=== PATIENT | female | born 1985 | race Caucasian/White ===

== ENCOUNTER 2016-05-09 17:30 | Emergency (ER) | payer SELFPAY ==
[~2016-05-09] VITALS: Ht 167.6 cm; Wt 103.0 kg
[~2016-05-09 17:30] MED LIST: METH-58 PO; METH250T PO; PREN-47 PO
[2016-05-09 17:32] VITALS: Ht 167.6 cm; Wt 103.0 kg
[2016-05-10] MEDS ORDERED: CETI-240 PO (11:52)
[2016-05-10] MEDS ORDERED: POLYT BOTH EYES (11:52)
[2016-05-10] MEDS ORDERED: CEPH-443 PO (11:53)
[2016-05-10] MEDS ORDERED: BENA20TA65 PO (12:09)
== END 2016-05-09 20:18 | disposition left against medical advice (07) ==
LOC: FTE 17:30
DX: Z53.21 Procedure and treatment not carried out due to patient leaving prior to being seen by health care provider (principal)

== ENCOUNTER 2016-05-10 09:54 | Emergency (ER) | payer OTHER ==
[2016-05-09 17:32] VITALS: Wt 103.5 kg
[~2016-05-10] VITALS: Wt 103.5 kg
[2016-05-10 11:14] LABS: URINE BLOOD (Dip) POC 3+ (NEGATIVE)
[2016-05-10] MEDS ORDERED: CEPHALEXIN 500 MG CAP PO ONE (11:30)
[2016-05-10] MEDS ORDERED: POLYT BOTH EYES (11:52)
[2016-05-10] MEDS ORDERED: CETI-240 PO (11:52)
[2016-05-10] MEDS ORDERED: CEPH-443 PO (11:53)
--- NOTE | 2016-05-10 11:56 | ERD ---
ER Documentation Chief Complaint Date/Time DATE: 05/10/16 TIME: 11:55 Chief Complaint eye redness, blurry vision HPI This 30-year-old female presents with bilateral eye redness with some discharge in the morning for last week. She has some slight swelling of her upper and lower lids. She denies any visual field deficits or abnormal eye movements. She denies fevers, shortness breath, chest pain. She may have had a URI last week. She has no additional complaints of burning with urination for last 3 days. She has a history of recurrent UTIs. She was last treated approximately 6 months ago. She denies any fevers or flank pain. ROS All systems reviewed and are negative except as per history of present illness. Medications Home Meds Active Scripts Benazepril Hcl* (Lotensin*) 20 Mg Tablet, 20 MG PO DAILY, #30 TAB Prov:TIA VILLALTA MD 05/10/16 Cephalexin* (Keflex*) 500 Mg Capsule, 500 MG PO QID for 7 Days, CAP Prov:TIA VILLALTA MD 05/10/16 Cetirizine Hcl* (Cetirizine Hcl*) 10 Mg Tablet, 10 MG PO DAILY, #15 TAB Prov:TIA VILLALTA MD 05/10/16 Polymyxin/Trimethoprim* (Polytrim*) 10 Ml Drops, 1 DROP BOTH EYES QID for 7 Days , EACH Prov:TIA VILLALTA MD 05/10/16 Reported Medications Methyldopa* (Methyldopa*) 500 Mg Tablet, 500 MG PO TID Y for ELEVATED BLOOD PRESSURE, TAB 01/13/16 Hll29-Vval-Hfqiy Acid (Prenata Chewable) 1 Each Tab.chew, 1 TAB PO DAILY, TAB.CHEW 08/09/15 Methyldopa* (Methyldopa*) 250 Mg Tablet, 250 MG PO TID Y for ELEVATED BLOOD PRESSURE, TAB 08/09/15 Allergies Allergies: Coded Allergies: No Known Drug Allergy (Unverified Allergy, Intermediate, NONE, 08/09/15) PMhx/Soc History of Surgery: No Anesthesia Reaction: No Hx Neurological Disorder: No Hx Respiratory Disorders: No Hx Cardiac Disorders: No Hx Psychiatric Problems: No Hx Miscellaneous Medical Probl: Yes (PREECLAMPSIA FOR ALL OF HER PREVIOUS PREGNANCIES (4TH PREG)) Hx Alcohol Use: No Hx Substance Use: No Hx Tobacco Use: No Physical Exam Vitals Vital Signs Date Time Temp Pulse Resp B/P Pulse Ox O2 Delivery O2 Flow Rate FiO2 05/10/16 10:03 97.0 74 20 188/98 98 Physical Exam Const: [] Alert, [id number] per Head: Atraumatic Eyes: Normal Conjunctiva. There is some slight bilateral scleral redness and some slight yellow discharge at the medial canthus. There is some very mild swelling of the upper and lower lids without proptosis or abnormal eye movements. ENT: Normal External Ears, Nose and Mouth. Neck: Full range of motion..~ No meningismus. Resp: Clear to auscultation bilaterally Cardio: Regular rate and rhythm, no murmurs Abd: Soft, non tender, non distended. Normal bowel sounds Skin: No petechiae or rashes Back: No midline or flank tenderness Ext: No cyanosis, or edema Neur: Awake and alert Psych: Normal Mood and Affect Results 24 hrs Laboratory Tests Test 05/10/16 11:14 05/10/16 11:22 Bedside Urine Blood 3+ Bedside Urine Glucose (UA) 0.1% Bedside Urine Ketones (LAB) Trace Bedside Urine Leukocyte Esterase (L 3+ Bedside Urine Nitrite (LAB) Positive Bedside Urine Protein (LAB) 3+ Bedside Urine pH (LAB) 6.0 Bedside Glucose 86mg/dL Current Medications Medications (Trade) Dose Ordered Sig/Adrienne Route PRN Reason Start Time Stop Time Status Last Admin Dose Admin Cephalexin (Keflex) 500 mg ONCE ONCE PO 05/10/16 11:30 05/10/16 11:31 DC 05/10/16 11:28 Benazepril HCl (Lotensin) 20 mg ONCE ONCE PO 05/10/16 12:30 05/10/16 12:31 DC Procedures/MDM Urine shows positive glucose, hemoglobin, nitrites, leukocytes and protein. Accu-Chek was normal. Patient appears to have signs and symptoms of acute UTI as well as conjunctivitis. She will be treated with Keflex, and Polytrim instructions for clear fluids, instructions to follow-up with primary doctor this week return to the ER for new or worsening symptoms. Urine was sent for culture given history of recurrent UTI Patient was also noted to have elevated blood pressure during ED course. She has a history of taking methyldopa during which is approximately 6 months ago. Apparently she is waiting for her insurance to get him to see her primary care doctor as she only had services for OB care. Patient denies any chest pain, shortness of breath, pedal edema. Patient is no signs or symptoms to currently suggest hypertensive emergency. She was given Lotensin 20 mg of mouth will be treated with Lotensin at home as well and instructed to follow-up with primary doctor for recheck of blood pressure and further evaluation. Patient otherwise acute for new or worsening symptoms as directed after instructions. Departure Diagnosis: Primary Impression: UTI (urinary tract infection) Urinary tract infection type: acute cystitis Hematuria presence: without hematuria Qualified Code: N30.00 - Acute cystitis without hematuria Additional Impressions: Conjunctivitis Conjunctivitis type: unspecified Laterality: bilateral Qualified Code: H10.9 - Conjunctivitis of both eyes, unspecified conjunctivitis type Hypertension Hypertension type: essential hypertension Qualified Code: I10 - Essential hypertension Condition: Stable Patient Instructions: Conjunctivitis, Allergic, Hypertension, Established, Understanding Urinary Tract Infections (UTIs) Additional Instructions: Drink plenty fluids at home. Recheck for new or worsening symptoms or primary care doctor. Recheck blood pressure with primary care doctor as well. TIA VILLALTA MD May 10, 2016 11:56
[2016-05-10] MEDS ORDERED: BENA20TA65 PO (12:09)
[2016-05-10] MEDS ORDERED: BENAZEPRIL 20 MG TAB PO ONE (12:30)
[2016-05-10 12:43] VITALS: BP 171/95; PULSE 69; RESP 20; TEMP 98
== END 2016-05-10 12:44 | disposition home or self-care (01) ==
LOC: FTE 09:54
DX: N30.00 Acute cystitis without hematuria (principal); H10.9 Unspecified conjunctivitis; I10 Essential (primary) hypertension
CPT/HCPCS: 81003; 82962; 87086; Z7502; Z7610; 99284

== ENCOUNTER 2017-05-11 20:53 | Emergency (ER) | END 2017-05-11 23:25 | disposition home or self-care (01) ==

== ENCOUNTER 2018-10-24 16:07 | Emergency (ER) | payer BC, OTHER ==
[~2018-10-24] VITALS: Ht 162.6 cm; Wt 102.3 kg
[~2018-10-24 16:07] MED LIST changes: +AMLO5TAB4 PO; +BENA20TA65 PO; +CEPH-443 PO; +CETI10TA19 PO; +FIORICET PO; -METH-58 PO; -METH250T PO; +METH250T21 PO; +METH500T24 PO; +[UNRECOGNIZED DRUG - CODE] BOTH EYES
[2018-10-24 16:17] VITALS: RESP 16; Ht 162.6 cm; Wt 102.3 kg
[2018-10-24] MEDS ORDERED: BENA20TA65 PO (17:10)
[2018-10-24] MEDS ORDERED: HYDR25TA6 PO (17:10)
--- NOTE | 2018-10-24 17:14 | ERD ---
ER Documentation Chief Complaint Chief Complaint PT reports hx of HTn and having HTN today HPI 32-year-old female presents with a history of hypertension. She is referred by [facility] for elevated blood pressure at the clinic today. They recommended her blood pressure be better controlled prior to initiation of contraceptives. She denies chest pain, shortness breath, fevers, headache, vomiting, visual changes, additional symptoms. She takes Lotensin 20 mg a day. Is she is usually well controlled although sometimes borderline by report. She has a family history of complications of hypertension and coronary artery disease. ROS All systems reviewed and are negative except as per history of present illness. Medications Home Meds Active Scripts Hydrochlorothiazide* (Hydrochlorothiazide*) 25 Mg Tab, 25 MG PO DAILY, #30 TAB Prov:TIA VILLALTA MD 10/24/18 Benazepril Hcl* (Lotensin*) 20 Mg Tablet, 20 MG PO DAILY, #30 TAB Prov:TIA VILLALTA MD 10/24/18 Acetamin/Butalbital/Caffeine* (Fioricet*) [id number] Tab, 1 TAB PO Q6H PRN for PAIN, #30 TAB Prov:TRA CARVER MD 05/11/17 Amlodipine Besylate* (Norvasc*) 5 Mg Tablet, 5 MG PO DAILY for 30 Days, TAB Prov:TRA CARVER MD 05/11/17 Benazepril Hcl* (Lotensin*) 20 Mg Tablet, 20 MG PO DAILY, #30 TAB Prov:TIA VILLALTA MD 05/10/16 Cephalexin* (Keflex*) 500 Mg Capsule, 500 MG PO QID for 7 Days, CAP Prov:TIA VILLALTA MD 05/10/16 Cetirizine Hcl* (Cetirizine Hcl*) 10 Mg Tablet, 10 MG PO DAILY, #15 TAB Prov:TIA VILLALTA MD 05/10/16 Polymyxin/Trimethoprim* (Polytrim*) 10 Ml Drops, 1 DROP BOTH EYES QID for 7 Days, EACH Prov:TIA VILLALTA MD 05/10/16 Reported Medications Methyldopa* (Methyldopa*) 500 Mg Tablet, 500 MG PO TID PRN for ELEVATED BLOOD PRESSURE, TAB 01/13/16 [id number]-[id number]-Pvnsn Acid (Prenata Chewable) 1 Each Tab.chew, 1 TAB PO [place] Y, TAB.CHEW 08/09/15 Methyldopa* (Methyldopa*) 250 Mg Tablet, 250 MG PO TID PRN for ELEVATED BLOOD PRESSURE, TAB 08/09/15 Allergies Allergies: Coded Allergies: No Known Drug Allergy (Unverified Allergy, Intermediate, NONE, 08/09/15) PMhx/Soc History of Surgery: No Anesthesia Reaction: No Hx Neurological Disorder: No Hx Respiratory Disorders: No Hx Cardiac Disorders: No Hx Psychiatric Problems: No Hx Miscellaneous Medical Probl: Yes (PREECLAMPSIA FOR ALL OF HER PREVIOUS PREGNANCIES (4TH PREG)) Hx Alcohol Use: No Hx Substance Use: No Hx Tobacco Use: No Smoking Status: Smoker,current status unk FmHx Family History: diabetes, coronary disease Physical Exam Vitals Vital Signs Date Temp Pulse Resp B/P (MAP) Pulse Ox O2 O2 Flow FiO2 Time Delivery Rate 10/24/18 98.3 74 16 176/99 100 16:17 (124) Physical Exam Const: No acute distress Head: Atraumatic Eyes: Normal Conjunctiva ENT: Normal External Ears, Nose and Mouth. Neck: Full range of motion. No meningismus. Resp: Clear to auscultation bilaterally Cardio: Regular rate and rhythm, no murmurs Abd: Soft, non tender, non distended. Normal bowel sounds Skin: No petechiae or rashes Back: No midline or flank tenderness Ext: No cyanosis, or edema Neur: Awake and alert Psych: Normal Mood and Affect Procedures/MDM Patient presents with a history of hypertension referred by [facility] for evaluation of elevated blood pressure. She has no current signs or symptoms of hypertensive emergency or endorgan damage. Given history of elevated readings despite Lotensin, we will add hydrochlorothiazide 25 mg a day with continued primary care follow-up and return precautions. The patient was stable with no new complaints during the ER course. Clinically, there is no current evidence to suggest meningitis, sepsis, acute abdomen, pneumonia, stroke, acute coronary syndrome, pulmonary embolism, aortic dissection or any other emergent condition appearing to require further evaluation or hospitalization. Patient counseled regarding my diagnostic impression and care plan. Prior to discharge all questions answered. Pt agrees with treatment plan and understands strict return precautions. Pt is instructed to follow up with primary care provider within 24-48 hours. Precautionary instructions provided including instructions to return to the ER if not improving or for any worsening or changing symptoms or concerns. Disclaimer: Inadvertent spelling and grammatical errors are likely due to EHR/dictation software use and do not reflect on the overall quality of patient care. Also, please note that the electronic time recorded on this note does not necessarily reflect the actual time of the patient encounter. Departure Diagnosis: Primary Impression: Hypertension Hypertension type: essential hypertension Qualified Codes: I10 - Essential (primary) hypertension Condition: Stable Patient Instructions: High Blood Pressure (Hypertension) Referrals: DOCTOR,NOT ON STAFF (PCP) Additional Instructions: Follow-up with primary doctor for ongoing treatment. Recheck otherwise for new worsening symptoms of shortness of breath, chest pain, vomiting, new or worsening symptoms. TIA VILLALTA MD Oct 24, 2018 17:14
[2018-10-24 17:35] VITALS: BP 148/87; PULSE 76
== END 2018-10-24 19:16 | disposition home or self-care (01) ==
LOC: FTE 16:07
DX: I10 Essential (primary) hypertension (principal); Z87.891 Personal history of nicotine dependence
CPT/HCPCS: 99283